=== PATIENT | female | born 2000 | race Two or more races ===

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

== ENCOUNTER → 2025-03-23 | Outpatient (CLI) | payer OTHER | LOC: M WUC 12:05 | PROVIDERS: ATTEND Student in an Organized Health Care Education/Training Program | DX: M25.571 Pain in right ankle and joints of right foot (principal) ==